=== PATIENT | male | born 1960 | race Caucasian/White ===

== ENCOUNTER 2017-01-27 23:39 | Emergency (ER) | payer BC ==
[~2017-01-27] VITALS: Ht 170.2 cm; Wt 79.0 kg
[2017-01-27 23:54] VITALS: Ht 170.2 cm; Wt 79.0 kg
[2017-01-28] MEDS ORDERED: ALBUTEROL 0.083% (NEB) 2.5 MG/3 ML AMP NEB STA (02:01)
[2017-01-28] MEDS ORDERED: IPRATROPIUM (NEB) 0.5 MG/2.5 ML AMP NEB STA (02:01)
[2017-01-28] MEDS ORDERED: predniSONE 20 MG TAB PO STA (02:01)
[2017-01-28] MEDS ORDERED: PROMETHAZINE/CODEINE 5ML CUP PO ONE (03:00)
--- NOTE | 2017-01-28 03:03 | RADRPT ---
PROCEDURE: XR Chest. CLINICAL INDICATION: Asthma exacerbation TECHNIQUE: Single frontal view of the chest. COMPARISON: None. FINDINGS: The cardiomediastinal silhouette is within normal limits. The lungs are clear. No signs of pleural f luid or pneumothorax are seen. The osseous structures and soft tissues are unremarkable. IMPRESSION: No evidence for active cardiopulmonary disease. RPTAT: [facility] Physician Kelly Date Time Electronically viewed and signed by Di Petit Physician on 01/28/2017 03:03 RS/
[2017-01-28] MEDS ORDERED: PROM5SYR2 PO (03:17)
[2017-01-28] MEDS ORDERED: PRED20TA PO (03:17)
[2017-01-28] MEDS ORDERED: ALBU2.5V3 NEB (03:17)
--- NOTE | 2017-01-28 03:23 | ERD ---
ER Documentation Chief Complaint Date/Time DATE: 01/28/17 TIME: 03:20 Chief Complaint Cough x2 months HPI This is a 56-year-old male who has had a cough for the past 2 months. He has tried taking azithromycin and Levaquin but no relief. Denies fever. He has a history of chronic bronchitis. In September had a normal chest x-ray and normal blood work. He uses an albuterol nebulizer at home. He denies any hemoptysis or unplanned night sweats or weight loss. ROS All systems reviewed and are negative except as per history of present illness. Medications Home Meds Active Scripts Albuterol Sulfate* (Albuterol Sulfate* Neb) 0.083%-3 Ml Neb, 2.5 MG NEB Q3H Y for WHEEZING AND SOB, #30 VIAL Prov:BRITTANY MARLOW PA-C 01/28/17 Prednisone* (Prednisone*) 20 Mg Tab, 40 MG PO DAILY for 5 Days, TAB Prov:BRITTANY MARLOW PA-C 01/28/17 Promethazine HCl/Codeine (Prometh-Codein 6.25-10 mg/5 ml) 5 Ml Syrup, 5 ML PO QHS, #6 OZ Prov:BRITTANY MARLOW PA-C 01/28/17 Allergies Allergies: Coded Allergies: No Known Allergy (Unverified , 02/06/14) PMhx/Soc Hx Alcohol Use: Yes (OCCASIONAL) Hx Substance Use: No Hx Tobacco Use: No FmHx Family History: No diabetes Physical Exam Vitals Vital Signs Date Time Temp Pulse Resp B/P Pulse Ox O2 Delivery O2 Flow Rate FiO2 01/28/17 02:34 Non Rebreather 01/28/17 02:20 75 18 96 21 01/27/17 23:54 98.0 88 22 128/80 94 Physical Exam General: well developed, well nourished, alert, nontoxic, no distress Head: normocephalic, atraumatic Neck: Supple, nontender, no lymphadenopathy, no midline tenderness Ears: no tenderness over mastoids bilaterally, TMs nonerythematous, no exudates in canal Oropharynx: no tonsilar erythema or edema, uvula midline, no exudates, no kissing tonsils, no drooling Respiratory: Clear to auscaultation bilaterally, speaks in full sentences, no use of accesory muscles or labored breathing, no rales, ronchi, or wheezing Cardiovascular: RRR, No murmurs GI: soft, non tender, non distended, negative murphys sign, negative mcburneys point tenderness, no cva tenderness bilaterally, no rebound or guarding Results 24 hrs Current Medications Medications (Trade) Dose Ordered Sig/Lucinda Route PRN Reason Start Time Stop Time Status Last Admin Dose Admin Albuterol (Proventil 0.083% (Neb)) 5 mg ONCE STAT NEB 01/28/17 02:01 01/28/17 02:02 DC 01/28/17 02:19 Ipratropium [place] (Atrovent 0.02% (Neb)) 0.5 mg ONCE STAT NEB 01/28/17 02:01 01/28/17 02:02 DC 01/28/17 02:19 Prednisone (Prednisone) 60 mg ONCE STAT PO 01/28/17 02:01 01/28/17 02:02 DC 01/28/17 02:36 Promethazine HCl/ Codeine (Phenergan/ Codeine) 10 ml ONCE ONCE PO 01/28/17 03:00 01/28/17 03:01 DC 01/28/17 02:52 Procedures/MDM Patient presents with chronic bronchitis. His vital signs are normal. His chest x-ray is normal. He had good relief of his symptoms with her breathing treatment, prednisone, and cough syrup. He was discharged with prednisone, cough syrup, and albuterol nebulizing solution. He was also requesting pulmonology referral and I gave him the names of several pulmonologists. Recommended this patient follow up with her primary care doctor within 48 hours or return to the emergency room for any worsening of symptoms. However this time I do believe there is suitable for outpatient management. I answered all their questions and they agreed with the plan and were discharged home. Departure Diagnosis: Primary Impression: Chronic bronchitis Condition: Stable Patient Instructions: What Is Chronic Bronchitis? Referrals: [facility]ERS MD,EL REYNOLDS,FRANCIS PACHECO,RYAN BRICE,ERIC VALLECILLO,BERNIE READ,JEFF HARRIS,FELISA DOWNEY,MARISSA CASEY,FITZ KC,AGGIE MOSER,LIZA MEJIA,DEBRA Butt MD, [facility] TUCKER VALERIO MD Additional Instructions: Call your primary care doctor TOMORROW for an appointment during the next 1-2 days.See the doctor sooner or return here if your condition worsens before your appointment time. BRITTANY MARLOW PA-C January 28, 2017 03:23
[2017-01-28 03:33] VITALS: BP 125/79; PULSE 80; RESP 24; TEMP 98
== END 2017-01-28 03:34 | disposition home or self-care (01) ==
LOC: FTE 23:39
DX: J42 Unspecified chronic bronchitis (principal)
CPT/HCPCS: 71010; 94664; 99284; J7512

== ENCOUNTER 2017-02-13 10:19 | Emergency (ER) | payer BC ==
[~2017-02-13] VITALS: Ht 162.6 cm; Wt 89.0 kg
[~2017-02-13 10:19] MED LIST: ALBU2.5V3 NEB; PRED20TA PO; PROM5SYR2 PO
[2017-02-13 10:26] VITALS: Ht 162.6 cm; Wt 89.0 kg
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
== END 2017-02-13 13:07 | disposition home or self-care (01) ==
LOC: FTE 10:19
DX: S09.90XA Unspecified injury of head, initial encounter (principal); R42 Dizziness and giddiness; V49.49XA Driver injured in collision with other motor vehicles in traffic accident, initial encounter
CPT/HCPCS: 70450

== ENCOUNTER 2017-03-24 01:56 | Emergency (ER) | payer BC ==
[~2017-03-24] VITALS: Ht 167.6 cm; Wt 77.2 kg
[2017-03-24 01:59] VITALS: Ht 167.6 cm; Wt 77.2 kg
--- NOTE | 2017-03-24 02:40 | ERA ---
ER Documentation Chief Complaint Date/Time DATE: 03/24/17 TIME: 02:39 Chief Complaint SOB HPI The patient is a 56-year-old male, presenting to the ER because of shortness of breath and palpitation that woke him up around 2 AM today. He also complains of shortness of breath after walking about 30 minutes around 8 PM yesterday. He denies similar symptoms previously, denies any chest pain with vomiting or diaphoresis. He denies pleuritic chest pain, abdominal pain, vomiting, dysuria , diarrhea. He does not smoke, denies drinking, smokes marijuana Past medical history: Chronic bronchitis Past surgical history: Left shoulder arthroscopy Family history: Negative for cardiac history ROS All systems reviewed and are negative except as per history of present illness. Medications Home Meds Active Scripts Albuterol Sulfate* (Albuterol Sulfate* Neb) 0.083%-3 Ml Neb, 2.5 MG NEB Q3H Y for WHEEZING AND SOB, #30 VIAL Prov:BRITTANY MARLOW PA-C 01/28/17 Prednisone* (Prednisone*) 20 Mg Tab, 40 MG PO DAILY for 5 Days, TAB Prov:BRITTANY MARLOW PA-C 01/28/17 Promethazine HCl/Codeine (Prometh-Codein 6.25-10 mg/5 ml) 5 Ml Syrup, 5 ML PO QHS, #6 OZ Prov:BRITTANY MARLOW PA-C 01/28/17 Allergies Allergies: Coded Allergies: No Known Allergy (Unverified , 03/24/17) PMhx/Soc Hx Neurological Disorder: Yes (concussion 01/2017) Hx Respiratory Disorders: Yes (chronic bronchitis) Hx Alcohol Use: Yes (OCCASIONAL) Hx Substance Use: No Hx Tobacco Use: No Smoking Status: Current every day smoker Physical Exam Vitals Vital Signs Date Time Temp Pulse Resp B/P Pulse Ox O2 Delivery O2 Flow Rate FiO2 03/24/17 03:09 Nasal Cannula 2 03/24/17 02:50 76 15 135/80 97 Room Air 03/24/17 01:59 97.0 98 24 136/81 98 Physical Exam Const: No acute distress. Head: Atraumatic. Eyes: Normal Conjunctiva. ENT: Normal External Ears, Nose and Mouth. Neck: Full range of motion. No meningismus. Resp: Clear to auscultation bilaterally. Cardio: Regular rate and rhythm. Abd: Soft, non distended, normal bowel sounds, non tender. Skin: No petechiae or rashes. Back: No midline or flank tenderness. Ext: No cyanosis, or edema. Neur: Awake and alert. No focal deficit Psych: Normal Mood and Affect. Result Diagram: 03/24/17 0305 03/24/17 0305 Results 24 hrs Laboratory Tests Test 03/24/17 03:05 White Blood Count 7.510^3/ul Red Blood Count 4.3610^6/ul Hemoglobin 14.4g/dl Hematocrit 40.5% Mean Corpuscular Volume 92.9fl Mean Corpuscular Hemoglobin 33.0pg Mean Corpuscular Hemoglobin Concent 35.6g/dl Red Cell Distribution Width 12.0% Platelet Count 21985^3/UL Mean Platelet Volume 9.4fl Neutrophils % 53.0% Lymphocytes % 32.1% Monocytes % 10.3% Eosinophils % 4.0% Basophils % 0.5% Nucleated Red Blood Cells % 0.0/100WBC Neutrophils # 4.010^3/ul Lymphocytes # 2.410^3/ul Monocytes # 0.810^3/ul Eosinophils # 0.310^3/ul Basophils # 0.010^3/ul Nucleated Red Blood Cells # 0.010^3/ul Prothrombin Time 12.3Sec Prothrombin Time Ratio 1.0 INR International Normalized Ratio 0.91 Activated Partial Thromboplast Time 29.8Sec D-Dimer 220.00ng/ml D-Dimer Comment Sodium Level 134mmol/L Potassium Level 3.7mmol/L Chloride Level 102mmol/L Carbon Dioxide Level 28mmol/L Anion Gap 8 Blood Urea Nitrogen 27mg/dl Creatinine 1.25mg/dl Glucose Level 100mg/dl Calcium Level 9.1mg/dl Troponin I < 0.012ng/ml Procedures/[place] [address] Radiology Main Line: [phone] DIAGNOSTIC IMAGING REPORT Patient: ESTRELLITA FABIAN : 1960 Age: 56 Sex: M MR #: [id number] DOS: 03/24/17 0252 Ordering MD: LUCIA SORIA MD Location: E/R Room/Bed: PROCEDURE: CHEST - 1 VIEW CLINICAL INDICATION: 56-year-old male with shortness of breath. TECHNIQUE: A single frontal AP upright portable view of the chest was performed. The images were reviewed on a PACS workstation. COMPARISON: Chest x-ray January 28, 2017. FINDINGS: The cardiomediastinal silhouette has a normal appearance. There is no evidence for an infiltrate. There is no evidence for congestive heart failure. There is no evidence for pneumothorax. The osseous structures are intact. IMPRESSION: No evidence for active cardiopulmonary disease. .Heriberto Herrera MD, MD Date Time Electronically viewed and signed by .Heriberto Herrera MD, MD on 03/24/2017 03:28 .M/ CC: LUCIA SORIA MD EK:27 AM read by emergency physician Rate/Rhythm: Normal Sinus Rhythm 72 beats/min QRS, ST, T-waves: No ST elevation, no T inversion Impression: Normal EKG EK:24 AM read by emergency physician Rate/Rhythm: Normal Sinus Rhythm 72 beats/min QRS, ST, T-waves: No ST elevation, no T inversion Impression: Normal EKG MEDICAL MAKING DECISION: The patient is a 56-year-old male, presenting with acute palpitation of unclear etiology. He remains well emergency department and is stable for outpatient follow-up The differential diagnoses considered include but are not limited to thyroid disease, stress, anxiety, PE, pneumonia, pneumothorax Departure Diagnosis: Primary Impression: Palpitation Additional Impression: Renal insufficiency Condition: Good Comments I discussed the findings with the patient. I advised the patient to follow-up with the primary physician in about 1-2 days, sooner if needed and return if any concern. The patient's blood pressure was elevated (>120/80) but appears stable without evidence of hypertension emergency or urgency. The patient was counseled about the risks of hypertension and urged to pursue outpatient monitoring and therapy within a week with their primary care physician. LUCIA SORIA MD Mar 24, 2017 02:39
[2017-03-24 03:16] LABS: ADD SCAN DIFF NO
[2017-03-24 03:18] LABS: BASOPHILS % 0.5 % (0.0-2.0); EOSINOPHILS # 0.3 10^3/ul (0.0-0.5); HEMATOCRIT 40.5 % (42.0-52.0); HEMOGLOBIN 14.4 g/dl (14.0-18.0); LYMPHOCYTES # 2.4 10^3/ul (0.8-2.9); LYMPHOCYTES % 32.1 % (15.0-51.0); MEAN CORPUSCULAR HGB CONC 35.6 g/dl (32.0-37.0); MEAN CORPUSCULAR VOLUME 92.9 fl (82.0-101.0); MEAN PLATELET VOLUME 9.4 fl (7.4-10.4); MONOCYTE # 0.8 10^3/ul (0.3-0.9); MONOCYTES % 10.3 % (0.0-11.0); PLATELET COUNT 270 10^3/UL (140-415); RED BLOOD COUNT 4.36 10^6/ul (4.70-6.10); WHITE BLOOD COUNT 7.5 10^3/ul (4.8-10.8)
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
[2017-03-24 03:34] LABS: INR 0.91; PROTIME 12.3 Sec (12.2-14.2)
[2017-03-24 03:35] LABS: PARTIAL THROMBOPLASTIN TIME 29.8 Sec (25.0-35.0)
[2017-03-24 03:37] LABS: ANION GAP 8 (8-16); BLOOD UREA NITROGEN 27 mg/dl (7-20); CALCIUM 9.1 mg/dl (8.4-10.2); CARBON DIOXIDE 28 mmol/L (21-31); CHLORIDE 102 mmol/L (97-110); CREATININE 1.25 mg/dl (0.61-1.24); GLUCOSE 100 mg/dl (70-220); POTASSIUM 3.7 mmol/L (3.5-5.1); SODIUM 134 mmol/L (135-144)
[2017-03-24 03:51] LABS: TROPONIN-I < 0.012 ng/ml (0.00-0.12)
[2017-03-24] MEDS ORDERED: IBUP200C PO (05:40)
[2017-03-24] MEDS ORDERED: MULTI PO (05:40)
[2017-03-24 05:49] VITALS: BP 122/78; PULSE 76; RESP 18
== END 2017-03-24 05:49 | disposition home or self-care (01) ==
LOC: FTE 01:56 → E/R 05:49
DX: R00.2 Palpitations (principal); N28.9 Disorder of kidney and ureter, unspecified; F17.210 Nicotine dependence, cigarettes, uncomplicated
CPT/HCPCS: 36415; 71010; 80048; 84484; 85025; 85378; 85610; 85730; 93005